=== PATIENT | female | born 1980 ===

== ENCOUNTER 2016-11-03 11:26 | Emergency (ER) | payer MEDICAID ==
[2016-11-03 11:39] VITALS: BMI 40.7
[2016-11-03 11:42] VITALS: BP 110/73; PULSE 85; RESP 17; TEMP 98.7; O2SAT 97
--- NOTE | 2016-11-03 12:04 | ED PDOC ---
Arrival/HPI - General Chief Complaint: Abdominal Pain Time Seen by Provider: 11/03/16 11:57 Historian: Patient - History of Present Illness Narrative History of Present Illness (Text): 11/03/16 11:58 A 36 year old female, whose past medical history includes asthma and Lyme disease, presents to the emergency department complaining of abdominal discomfort since yesterday. Patient reports a fever of 100.3, chills, nausea and non-bilious non-bloody vomiting yesterday. Patient took Tylenol, with mild relief. Patient reports watery non-bloody diarrhea since this morning. Patient continue to note nausea but denies any urinary symptoms, back pain, chest pain, shortness of breath or any other complaints. Patient denies any sick contact or recent travel. Time/Duration: Prior to Arrival Symptom Course: Unchanged Quality: Other Context: Home Past Medical History - Provider Review Nursing Documentation Reviewed: Yes - Cardiac Hx Cardiac Disorders: No - Pulmonary Hx Asthma: Yes - Neurological Hx Neurological Disorder: No - HEENT Hx HEENT Disorder: No - Renal Hx Renal Disorder: No - Endocrine/Metabolic Hx Endocrine Disorders: No - Hematological/Oncological Hx Blood Disorders: No - Integumentary Hx Dermatological Disorder: No - Musculoskeletal/Rheumatological Hx Musculoskeletal Disorders: No - Gastrointestinal Hx Gastrointestinal Disorders: No - Genitourinary/Gynecological Hx Genitourinary Disorders: No - Psychiatric Hx Psychophysiologic Disorder: No Hx Depression: No Hx Emotional Abuse: No Hx Physical Abuse: No Hx Substance Use: No - Past Surgical History Past Surgical History: No Previous - Suicidal Assessment Feels Threatened In Home Enviroment: No Family/Social History - Physician Review Nursing Documentation Reviewed: Yes Family/Social History: No Known Family HX Smoking Status: Heavy Smoker > 10 Cigarettes Daily Hx Alcohol Use: Yes Hx Substance Use: No Hx Substance Use Treatment: No Allergies/Home Meds Allergies/Adverse Reactions: Allergies No Known Allergies Allergy (Verified 11/03/16 11:39) Home Medications: Home Meds Medication Instructions Recorded Confirmed Albuterol Sulfate [Albuterol Hfa] 1 puff INH PRN PRN 04/29/14 09/01/14 Guaifenesin [Mucinex] 1,200 mg PO Q8 PRN 09/01/14 09/01/14 Review of Systems - Physician Review All systems were reviewed & negative as marked: Yes - Review of Systems Constitutional: Fevers, Night Sweats Respiratory: absent: SOB Cardiovascular: absent: Chest Pain Gastrointestinal: Abdominal Pain, Diarrhea, Nausea, Vomiting Genitourinary Female: absent: Dysuria, Frequency, Hematuria, Urine Output Changes Musculoskeletal: absent: Back Pain Physical Exam - Physical Exam Narrative Physical Exam (Text): Constitutional: No acute distress. Head: Normocephalic. Atraumatic. Eyes: PERRL. ENT: Moist mucous membranes. Neck: Supple. Cardiovascular: Regular rate. Chest: No tenderness. Respiratory: Clear to auscultation bilaterally. GI: Soft. Nontender. Nondistended. Back: No CVA tenderness. Musculoskeletal: No tenderness or swelling of extremities. Skin: No rash. Neurologic: Alert, no focal deficit. Vital Signs Reviewed: Yes Vital Signs Temp Pulse Resp BP Pulse Ox 11/03/16 11:42 98.7 F 85 17 110/73 97 Temperature: Afebrile Blood Pressure: Normal Pulse: Regular Respiratory Rate: Normal Appearance: Positive for: Well-Appearing, Non-Toxic, Comfortable Pain Distress: None Mental Status: Positive for: Alert and Oriented X 3 Medical Decision Making ED Course and Treatment: 11/03/16 11:58 Impression: A 36 year old female with abdominal discomfort. Patient notes fever, chills, nausea, non-bilious non-bloody vomiting and diarrhea. Differential Diagnosis included but are not limited to: Gastroenteritis Plan: -- Urinalysis -- Zofran -- Reassess and disposition Progress Notes: PO challenged. Vital signs normal. Patient feels comfortable to go home and continue PO hydration. Instructed to return to ER for worsening vomiting, inability to take PO, weakness, decrease in UOP. - Lab Interpretations Lab Results: Lab Results 11/03/16 12:00: Urine Color Light yellow, Urine Appearance Sl cloudy, Urine pH 5.5, Ur Specific [place] >= 1.030, Urine Protein 100 H, Urine Glucose (UA) Negative, Urine Ketones 40 H, Urine Blood Small H, Urine Nitrate Negative, Urine Bilirubin Small H, Urine Urobilinogen 1.0 H, Ur Leukocyte Esterase Negative, Urine RBC 5 - 10, Urine WBC 0 - 2, Ur Epithelial Cells 6 - 8, Amorphous Sediment Few, Urine Bacteria Many, Urine Other Fiber, Urine HCG, Qual Negative - Medication Orders Current Medication Orders: Discontinued Medications Ondansetron HCl (Zofran Odt) 8 mg PO STAT STA Stop: 11/03/16 11:58 Last Admin: 11/03/16 12:06 Dose: 8 MG - Scribe Statement The provider has reviewed the documentation as recorded by the Manpreet Obregon Provider Dioneibsonu Attestation: All medical record entries made by the Scribsonu were at my direction and personally dictated by me. I have reviewed the chart and agree that the record accurately reflects my personal performance of the history, physical exam, medical decision making, and the department course for this patient. I have also personally directed, reviewed, and agree with the discharge instructions and disposition. Disposition/Present on Arrival - Present on Arrival Any Indicators Present on Arrival: No History of DVT/PE: No History of Uncontrolled Diabetes: No Urinary Catheter: No History of Decub. Ulcer: No History Surgical Site Infection Following: None - Disposition Have Diagnosis and Disposition been Completed?: Yes Diagnosis: Vomiting and diarrhea Disposition: HOME/ ROUTINE Disposition Time: 13:31 Patient Plan: Discharge Condition: STABLE Discharge Instructions (ExitCare): Gastroenteritis (ED) Prescriptions: Ondansetron ODT [Zofran ODT] 4 mg PO Q8 #12 odt Referrals: PCP,NO [Primary Care Provider] - Follow up with primary
[2016-11-03 12:13] LABS: PH,URINE 5.5 (4.7-8.0); URINE BILIRUBIN SMALL (NEGATIVE); URINE BLOOD SMALL (NEGATIVE); URINE GLUCOSE (UA) NEGATIVE (NEGATIVE); URINE KETONE 40 mg/dL (NEGATIVE); URINE LEUKOCYTE ESTERASE NEGATIVE Leu/uL (NEGATIVE); URINE PROTEIN 100 mg/dL (<30 mg/dL)
[2016-11-03 12:14] LABS: URINE APPEARANCE SL CLOUDY (CLEAR); URINE COLOR LIGHT YELLOW (YELLOW)
[2016-11-03 12:24] LABS: URINE BACTERIA MANY (NEG); URINE WBC 0 - 2 /hpf (0-6)
[2016-11-03 12:25] LABS: URINE AMORPHOUS SEDIMENT FEW
== END 2016-11-03 13:44 | disposition home or self-care (01) ==
LOC: ED 11:26
DX: R11.10 Vomiting, unspecified (principal); R19.7 Diarrhea, unspecified

== ENCOUNTER 2017-07-11 19:11 | Emergency (ER) | payer MEDICAID ==
[2017-07-11 19:11] VITALS: BMI 40.7
[2017-07-11 19:23] VITALS: TEMP 98.2; O2SAT 99
[2017-07-11 19:56] LABS: ALB/GLOB RATIO 1.4 (1.1-1.8); ALKALINE PHOSPHATASE 59 U/L (38-126); ALT/SGPT 37 U/L (7-56); AST/SGOT 31 U/L (14-36); BILIRUBIN,TOTAL 0.8 mg/dL (0.2-1.3); BLOOD UREA NITROGEN 13 mg/dL (7-21); CALCIUM 9.6 mg/dL (8.4-10.5); CARBON DIOXIDE 26 mmol/L (21-33); CHLORIDE 107 mmol/L (98-107); GFR AFRICAN-AMERICAN > 60; GLUCOSE,RANDOM 85 mg/dL (70-110); POTASSIUM 3.4 mmol/L (3.6-5.0); SODIUM 142 mmol/L (132-148); TOTAL PROTEIN 7.6 g/dL (5.8-8.3)
[2017-07-11 20:05] LABS: BASO # 0.04 K/mm3 (0.0-2.0); BASO % 0.4 % (0.0-3.0); EOS # 0.2 (0.0-0.7); EOS % 1.8 % (1.5-5.0); GRAN # 5.77 (1.4-6.5); GRAN % 58.7 % (50.0-68.0); HEMATOCRIT 40.2 % (36.0-48.0); LYMPH # 3.3 (1.2-3.4); MEAN CORPUSCULAR HEMOGLOBIN 31.1 pg (25.0-35.0); MEAN CORPUSCULAR HGB CONC 33.8 g/dl (31.0-37.0); MEAN PLATELET VOLUME 11.1 fl (7.0-11.0); MONO # 0.6 (0.1-0.6); MONO % 6.1 % (1.0-6.0); RED CELL DISTRIBUTION WIDTH 13.4 % (11.5-14.5); WHITE BLOOD COUNT 9.8 10^3/ul (4.5-11.0)
[2017-07-11 20:06] LABS: INR 1.14 (0.93-1.08); PARTIAL THROMBOPLASTIN TIME 33.8 Seconds (25.1-36.5); TROPONIN I < 0.01 ng/mL
[2017-07-11 20:11] LABS: URINE BILIRUBIN NEGATIVE (NEGATIVE); URINE BLOOD NEGATIVE (NEGATIVE); URINE GLUCOSE (UA) NEGATIVE (NEGATIVE); URINE KETONE NEGATIVE (NEGATIVE); URINE LEUKOCYTE ESTERASE NEGATIVE Leu/uL (NEGATIVE); URINE PROTEIN NEGATIVE mg/dL (<30 mg/dL)
--- NOTE | 2017-07-11 20:15 | ED PDOC ---
Arrival/HPI - General Chief Complaint: Weakness/Neurological Deficit Time Seen by Provider: 07/11/17 19:36 Historian: Patient - History of Present Illness Narrative History of Present Illness (Text): 07/11/17 20:15 A 36 year old female, whose past medical history includes asthma and Lyme disease, presents to the emergency department complaining of occasional intermittent paresthesia of bilateral hands for the past few days. Denies any pain, history of trauma, weakness. Patient denies any headache, chest pain, shortness of breath, fever, chills, joint pain or swelling, or any other complaints at this time. Denies any drug use. Time/Duration: < week Symptom Onset: Sudden Symptom Course: Unchanged Activities at Onset: Rest Context: Home Past Medical History - Provider Review Nursing Documentation Reviewed: Yes - Infectious Disease Hx of Infectious Diseases: None - Cardiac Hx Cardiac Disorders: No - Pulmonary Hx Asthma: Yes - Neurological Hx Neurological Disorder: No Other/Comment: bells palsy, lyme dis - HEENT Hx HEENT Disorder: No - Renal Hx Renal Disorder: No - Endocrine/Metabolic Hx Endocrine Disorders: No - Hematological/Oncological Hx Blood Disorders: No - Integumentary Hx Dermatological Disorder: No - Musculoskeletal/Rheumatological Hx Musculoskeletal Disorders: No - Gastrointestinal Hx Gastrointestinal Disorders: No - Genitourinary/Gynecological Hx Genitourinary Disorders: No - Psychiatric Hx Psychophysiologic Disorder: No Hx Depression: No Hx Emotional Abuse: No Hx Physical Abuse: No Hx Substance Use: No - Past Surgical History Past Surgical History: No Previous - Anesthesia Hx Anesthesia: No Hx Anesthesia Reactions: No Hx Malignant Hyperthermia: No - Suicidal Assessment Feels Threatened In Home Enviroment: No Family/Social History - Physician Review Nursing Documentation Reviewed: Yes Family/Social History: No Known Family HX Smoking Status: Heavy Smoker > 10 Cigarettes Daily Hx Alcohol Use: Yes Frequency of alcohol use: Socially Hx Substance Use: No Hx Substance Use Treatment: No Allergies/Home Meds Allergies/Adverse Reactions: Allergies No Known Allergies Allergy (Verified 11/03/16 11:39) Home Medications: Home Meds Medication Instructions Recorded Confirmed No Known Home Med 07/11/17 07/11/17 Review of Systems - Physician Review All systems were reviewed & negative as marked: Yes - Review of Systems Constitutional: absent: Fevers, Other (chills) Respiratory: absent: SOB Cardiovascular: absent: Chest Pain Musculoskeletal: Other (paresthesia of bilateral hands). absent: Joint Swelling Neurological: absent: Headache Physical Exam Vital Signs Reviewed: Yes Vital Signs Temp Pulse Resp BP Pulse Ox 07/11/17 19:17 98.2 F 75 19 137/84 99 Temperature: Afebrile Blood Pressure: Normal Pulse: Regular Respiratory Rate: Normal Appearance: Positive for: Well-Appearing, Non-Toxic, Comfortable Pain Distress: None Mental Status: Positive for: Alert and Oriented X 3 Finger Stick Blood Glucose: 122 - Systems Exam Head: Present: Atraumatic, Normocephalic Pupils: Present: PERRL Extroacular Muscles: Present: EOMI Conjunctiva: Present: Normal Mouth: Present: Moist Mucous Membranes Neck: Present: Normal Range of Motion Respiratory/Chest: Present: Clear to Auscultation, Good Air Exchange. No: Respiratory Distress, Accessory Muscle Use Cardiovascular: Present: Regular Rate and Rhythm, Normal S1, S2. No: Murmurs Abdomen: Present: Normal Bowel Sounds. No: Tenderness, Distention, Peritoneal Signs Back: Present: Normal Inspection Upper Extremity: Present: Normal Inspection, Normal ROM, Neurovascularly Intact. No: Cyanosis, Edema Lower Extremity: Present: Normal Inspection, Normal ROM, Neurovascularly Intact. No: Edema Neurological: Present: GCS=15, CN II-XII Intact, Speech Normal Skin: Present: Warm, Dry, Normal Color. No: Rashes Psychiatric: Present: Alert, Oriented x 3, Normal Insight, Normal Concentration Medical Decision Making ED Course and Treatment: 07/11/17 20:12 Impression: A 36 year old female with paresthesia of bilateral hands. Plan: -- EKG -- CT head -- Urinalysis -- labs -- Reassess and disposition Prior Visits: Notes and results from previous visits were reviewed. Patient last reported to the emergency department on 11/03/16 for evaluation of abdominal discomfort, fever, chills, nausea and vomiting. Progress Notes: EKG: Ordered, reviewed, and independently interpreted the EKG. Rate : 66 BPM Rhythm : NSR Interpretation : Normal intervals, normal axis - Lab Interpretations Lab Results: 07/11/17 19:30 07/11/17 19:30 Lab Results 07/11/17 19:30: Sodium 142, Potassium 3.4 L, Chloride 107, Carbon Dioxide 26, Anion Gap 12, BUN 13, Creatinine 0.8, Est GFR ( Amer) > 60, Est GFR (Non- Af Amer) > 60, Random Glucose 85, Calcium 9.6, Total Bilirubin 0.8, AST 31, ALT 37, Alkaline Phosphatase 59, Lactate Dehydrogenase 447, Total Creatine Kinase 244 H, CK-MB (CK-2) 1.7, CK-MB (CK-2) % Cancelled, Troponin I < 0.01, Total Protein 7.6, Albumin 4.4, Globulin 3.2, Albumin/Globulin Ratio 1.4 07/11/17 19:30: Urine Color Light yellow, Urine Appearance Clear, Urine pH 6.0, Ur Specific [place] 1.025, Urine Protein Negative, Urine Glucose (UA) Negative, Urine Ketones Negative, Urine Blood Negative, Urine Nitrate Negative, Urine Bilirubin Negative, Urine Urobilinogen 1.0 H, Ur Leukocyte Esterase Negative, Urine HCG, Qual Negative 07/11/17 19:30: PT 12.5, INR 1.14 H, APTT 33.8 07/11/17 19:30: WBC 9.8 D, RBC 4.37, Hgb 13.6, Hct 40.2, MCV 92.0, MCH 31.1, MCHC 33.8, RDW 13.4, Plt Count 287, MPV 11.1 H, Gran % 58.7, Lymph % (Auto) 33.0 , [place]kinson % (Auto) 6.1 H, Eos % (Auto) 1.8, Baso % (Auto) 0.4, Gran # 5.77, Lymph # 3.3, Wilkinson # 0.6, Eos # 0.2, Baso # 0.04 I have reviewed the lab results: Yes - RAD Interpretation Radiology Orders: 07/11/17 19:52 HEAD W/O CONTRAST [CT] Stat - EKG Interpretation Interpreted by ED Physician: Yes Type: 12 lead EKG - Medication Orders Current Medication Orders: Discontinued Medications Potassium Chloride (K-Dur 20 Meq Er Tab) 20 meq PO STAT STA Stop: 07/11/17 22:10 Last Admin: 07/11/17 22:30 Dose: 20 meq - Scribe Statement The provider has reviewed the documentation as recorded by the Dioneibsonu Johnson All medical record entries made by the Dioneibsonu were at my direction and personally dictated by me. I have reviewed the chart and agree that the record accurately reflects my personal performance of the history, physical exam, medical decision making, and the department course for this patient. I have also personally directed, reviewed, and agree with the discharge instructions and disposition. Disposition/Present on Arrival - Present on Arrival Any Indicators Present on Arrival: No History of DVT/PE: No History of Uncontrolled Diabetes: No Urinary Catheter: No History of Decub. Ulcer: No History Surgical Site Infection Following: None - Disposition Have Diagnosis and Disposition been Completed?: Yes Diagnosis: Paresthesia of both hands Disposition: HOME/ ROUTINE Disposition Time: 23:19 Patient Plan: Discharge Patient Problems: Current Active Problems Problem Status Onset Paresthesia of both hands Acute Condition: GOOD Discharge Instructions (ExitCare): Paresthesia (ED) Additional Instructions: Take Advil as directed/follow up with the neurologist this week Referrals: Abdoulaye Aly, DNP, ONLINE SERVICES MANAGER [Primary Care Provider] - Follow up with primary Donal Catalan MD [Staff Provider] - Follow up with primary Forms: [employer] (Iranian)
[2017-07-11 20:20] LABS: URINE APPEARANCE CLEAR (CLEAR); URINE COLOR LIGHT YELLOW (YELLOW)
[2017-07-11] MEDS ORDERED: Potassium Chloride 20 mEq ER Tab PO STA (22:09)
--- NOTE | 2017-07-11 22:58 | CT ---
EXAM: CT Head Without Intravenous Contrast CLINICAL HISTORY: 36 years old, female; Signs and symptoms; Numbness / parasthesia; Bilateral; Additional info: Paresthesias TECHNIQUE: Axial computed tomography images of the head/brain without intravenous contrast. All CT scans at this facility use one or more dose reduction techniques, viz.: automated exposure control; ma/kV adjustment per patient size (including targeted exams where dose is matched to indication; i.e. head); or iterative reconstruction technique. COMPARISON: No relevant prior studies available. FINDINGS: Brain: No acute intracranial hemorrhage. No significant white matter disease. No edema. Ventricles: No significant ventriculomegaly. Bones: No acute displaced fracture. Sinuses: Unremarkable as visualized. No acute sinusitis. Mastoid air cells: Unremarkable as visualized. No mastoid effusion. IMPRESSION: No acute intracranial hemorrhage, or suspicious mass effect.
[2017-07-12 05:03] VITALS: BP 130/80; PULSE 73; RESP 18
--- NOTE | 2017-07-12 17:44 | CARD ---
APPROVED REPORT EKG Measurement Heart [id number] <Conclusion> Normal sinus rhythm Normal ECG
== END 2017-07-11 23:44 | disposition home or self-care (01) ==
LOC: ED 19:11
DX: R20.2 Paresthesia of skin (principal)